=== PATIENT | female | born 1965 ===

== ENCOUNTER 2021-07-11 21:58 | Inpatient (IN) | payer OTHER ==
[~2021-07-11] VITALS: Ht 165.1 cm; Wt 61.2 kg
[2021-07-11 23:17] LABS: HEMATOCRIT 41.2 % (31.2-41.9); MEAN CORPUSCULAR HEMOGLOBIN 28.8 uug (24.7-32.8); MEAN CORPUSCULAR VOLUME 86.7 fL (75.5-95.3); PLATELET COUNT (AUTO) 235 K/uL (179-408)
[2021-07-11 23:30] LABS: CARBON DIOXIDE 27 mmol/L (21-32); CHLORIDE 107 mmol/L (98-107); GLUCOSE 238 mg/dL (74-106); POTASSIUM 3.4 mmol/L (3.5-5.1); UREA NITROGEN, BLOOD 11 mg/dL (7-18)
[2021-07-12] MEDS ORDERED: ASPI81TA31 PO (00:13)
[2021-07-12] MEDS ORDERED: SITA50TA PO (00:13)
[2021-07-12] MEDS ORDERED: ATOR40TA PO (00:13)
[2021-07-12] MEDS ORDERED: LOSA25TA27 PO ×2 (00:13→14:18)
[2021-07-12] MEDS ORDERED: METF-442 PO (00:13)
[2021-07-12] MEDS ORDERED: insulin SUBCUT (00:13)
--- NOTE | 2021-07-12 00:14 | NUR ---
PATIENT UNABLE TO RECALL ALL HOME MEDICATION AT THIS TIME.
--- NOTE | 2021-07-12 01:40 | NUR ---
Rpt troponin resulted, Dr Maciel aware.
--- NOTE | 2021-07-12 05:22 | NUR ---
Sharron Shane SPRAYER OPERATOR furnace combination analyst for [facility] accepted patient.
[2021-07-12] MEDS ORDERED: MORPHINE SULFATE 2 MG/1 ML DISP.SYRIN IV PRN (05:30)
[2021-07-12] MEDS ORDERED: DOCUSATE SODIUM 100 MG CAPSULE PO PRN (05:30)
[2021-07-12] MEDS ORDERED: ACETAMINOPHEN 325 MG TABLET PO PRN (05:30)
[2021-07-12] MEDS ORDERED: NITROGLYCERIN 0.4 MG/TAB BOTTLE SL PRN (05:30)
[2021-07-12] MEDS ORDERED: ONDANSETRON 4 MG/2 ML VIAL IV PRN (05:30)
[2021-07-12] MEDS ORDERED: MAG HYDROX/AL HYDROX/SIMETH 30 ML LIQUID UDC PO PRN (05:30)
[2021-07-12 06:50] LABS: HEMATOCRIT 40.9 % (31.2-41.9); MEAN CORPUSCULAR VOLUME 86.8 fL (75.5-95.3); PLATELET COUNT (AUTO) 223 K/uL (179-408)
--- NOTE | 2021-07-12 07:05 | NUR ---
REcieved pt sleeping comfortably in bed, NAD noted at this time.
[2021-07-12 07:20] LABS: BILIRUBIN,TOTAL 0.3 mg/dL (0.2-1.0); CREATININE 0.7 mg/dL (0.6-1.3); PHOSPHOROUS 3.8 mg/dL (2.5-4.9); POTASSIUM 3.5 mmol/L (3.5-5.1)
[2021-07-12 07:21] LABS: THYROID STIMULATING HORMONE 1.936 mIU/mL (0.358-3.740)
--- NOTE | 2021-07-12 07:50 | NUR ---
Attempted to give report to swim coach x2, but unable to, Rn was not available.
--- NOTE | 2021-07-12 08:25 | NUR ---
ADMITTED FROM HOME VIA ER A 55 Y.O. FEMALE C/O CHEST PRESSURE RADIATING TO THE LEFT SHOULDER WITH TINGLING SENSATION, DX CP R/O ACS. ALERT AND ORIENTED, DENIES ANY CP UPON ARRIVAL ON THE FLOOR. ROUTINE ADMISSION ASSESSMENT INITIATED, SEEN BY DR FLORES AND DR COBURN. SEE NOTES
[2021-07-12] MEDS ORDERED: ASPIRIN 81 MG TAB.CHEW PO SCH (09:00)
[2021-07-12] MEDS ORDERED: DEXTROSE 50% 50 ML DISP.SYRIN IV PRN (09:30)
--- NOTE | 2021-07-12 11:24 | NUR ---
DR PARRISH NOTIFIED OF TROP#3 SAID HE IS AWARE AND PATIENT CLEARED TO GO FAR CARDIAC STANDPOINT. PATIENT REMAINS ASYMPTOMATIC, RESTING COMFORTABLY, DENIES CHEST PAIN, SR ON MONITOR
[2021-07-12 12:00] VITALS: BP 104/47
[2021-07-12] MEDS: BLOOD SUGAR DIAGNOSTIC 1 EACH STRIP VI SCH ×2 (12:03→16:57)
[2021-07-12] MEDS: INSULIN REGULAR, HUMAN 300 UNIT/3 ML VIAL SQ PRN ×2 (12:05→16:58)
[2021-07-12] MEDS ORDERED: SITA100T PO (14:18)
[2021-07-12] MEDS ORDERED: GABA300C PO (14:18)
[2021-07-12] MEDS ORDERED: MONT10TA33 PO (14:18)
[2021-07-12] MEDS ORDERED: INSU3INS6 SQ (14:18)
[2021-07-12] MEDS ORDERED: GLIM4TAB37 PO (14:18)
[2021-07-12] MEDS ORDERED: FAMO20TA8 PO (14:18)
[2021-07-12] MEDS ORDERED: FLUT1BLS13 IH (14:18)
[2021-07-12] MEDS ORDERED: ALBU8.5H8 IH (14:18)
[2021-07-12] MEDS ORDERED: METF-441 PO (14:18)
[2021-07-12] MEDS ORDERED: CHOL200059 PO (14:18)
[2021-07-12] MEDS ORDERED: OMEG1CAP55 PO (14:18)
[2021-07-12] MEDS ORDERED: FENO134C PO (14:18)
[2021-07-12] MEDS ORDERED: PRAV20TA4 PO (14:18)
[2021-07-12 16:00] VITALS: BP 109/53
--- NOTE | 2021-07-12 17:57 | NUR ---
DR COBURN NOTIFIED OF 2D ECHO RESULTS WITH ORDER TO DISCHARGE PATIENT AND FOLLOW-UP WITH PRIMARY DOCTOR AND BUFFER INFLATED PAD
--- NOTE | 2021-07-12 18:30 | NUR ---
PATIENT BEEN PICK-UP BY FAMILY VIA PRIVATE CAR WITH FOLLOW-UP INSTRUCTION WITH DISPLAY CARVER AND PRIMARY DOCTOR. LIST OF MEDICATION WITH INSTRUCTION GIVEN
[2021-07-12] MEDS ORDERED: SIMVASTATIN 10 MG TABLET PO SCH (21:00)
== END 2021-07-12 18:30 | disposition home or self-care (01) | DRG 755 ==
LOC: ER 22:03 → TELE3 07-12 07:37
PROVIDERS: ADMIT Family Medicine; ATTEND Family Medicine
DX: F43.8 Other reactions to severe stress (principal); E11.65 Type 2 diabetes mellitus with hyperglycemia; E78.5 Hyperlipidemia, unspecified; E87.6 Hypokalemia; I10 Essential (primary) hypertension; J45.909 Unspecified asthma, uncomplicated; Z83.3 Family history of diabetes mellitus; Z79.84 Long term (current) use of oral hypoglycemic drugs; F45.41 Pain disorder exclusively related to psychological factors; Z79.4 Long term (current) use of insulin; R41.3 Other amnesia; R07.89 Other chest pain; Z20.822 Contact with and (suspected) exposure to COVID-19
CPT/HCPCS: 36415; 71045; 83735; 84100; 84443; 84484; 85025; 93005; A4663; G0378; J1815